=== PATIENT | female | born 1960 | race Caucasian/White ===

== ENCOUNTER 2019-05-27 11:02 | Emergency (ER) | payer OTHER ==
[~2019-05-27] VITALS: Ht 149.9 cm; Wt 90.7 kg
[2019-05-27 12:25] VITALS: BP 127/77
== END 2019-05-27 13:37 | disposition home or self-care (01) ==
LOC: ER 11:02
DX: J06.9 Acute upper respiratory infection, unspecified (principal); I10 Essential (primary) hypertension; E78.5 Hyperlipidemia, unspecified